=== PATIENT | female | born 1990 | race Caucasian/White ===

== ENCOUNTER 2024-03-13 20:29 | Emergency (ER) | payer MEDICAID, SELFPAY ==
--- NOTE | 2024-03-13 20:45 | XR_ITS ---
Examination: Complete OB ultrasound, less than 14 weeks, transabdominal Date and time of exam: March 13, 2024 2155 hrs. Indications: Onset vaginal bleeding beginning 2 days ago Technique: Obstetrical ultrasound images less than 14 weeks performed via transabdominal imaging Findings: Uterus 14.6 x 5.6 x 8.5 cm Fundal area of fibroid degeneration 11 x 15 mm Gestational sac 1.4 cm correspondences 6 weeks 2 days gestational age No pole no cardiac activity Right ovary 3.7 x 3.0 x 4.1 cm arterial flow 25 mm cyst Left ovary 4.8 x 3.9 x 5.0 cm arterial flow Impression: Empty intrauterine gestational sac corresponding to 6 weeks 2 days gestational age Recommend short-term follow-up transvaginal pelvic sonography to exclude embryonic demise Prominent left ovary, recommend follow-up
[2024-03-13 20:53] VITALS: BP 126/79; PULSE 79; RESP 18; TEMP 36.3; O2SAT 98
--- NOTE | 2024-03-13 21:32 | EDNOTE_ITS ---
<Statement entered by Amena Houser MD - 03/14/24 19:25> As co-signing physician, I was present and available for consult prn. I concur with the plan and care as documented by the midlevel provider. ED OB Contraction Preg RMI/HPI General Chief complaint: Vaginal Bleeding Stated complaint: 8Weeks PG/Worsening Vaginal Bleeding Time Seen by Provider: 03/13/24 20:45 Arrival date/time: 03/13/24 20:29 33F at approximately 8 weeks and with no significant PMH presents to ED with 2 days of vaginal bleeding and pelvic pain. Limitations: no limitations Related Data Previous Rx's ?Medication ?Instructions ?Recorded Hydrocodone/Acetaminophen * (NORCO 1 tab PO Q6H PRN pain #20 tabs 06/11/15 5/325 *) Sulfamethoxazole/Trimethoprim DS * 1 tab PO BID #20 tabs 06/11/15 (BACTRIM DS *) albuterol sulfate 90 mcg/actuation 2 puff inhalation Q6HR PRN 04/02/17 aerosol inhaler (ProAir HFA) WHEEZING #1 inh prednisone 20 mg tablet 40 mg (2 x 20 mg) PO QAM #10 tabs 04/02/17 Allergies Allergy/AdvReac Type Severity Reaction Status Date / Time No Known Allergies Allergy Verified 03/13/24 20:33 Review of Systems Review of Systems Systems Reviewed: All systems reviewed, normal except as documented Constitutional Constitutional: Reports system reviewed and no additional complaints, except as documented, Denies fever(s) and Denies headache(s) ENT Ears, Nose, Mouth, and Throat: Denies disequilibrium and Denies headache(s) Cardiovascular Cardiovascular: Reports system reviewed and no additional complaints, except as documented, Denies chest pain and Denies dyspnea Respiratory Respiratory: Reports system reviewed and no additional complaints, except as documented, Denies cough and Denies dyspnea Gastrointestinal Gastrointestinal: Reports system reviewed and no additional complaints, except as documented, Denies abdominal pain, Denies nausea and Denies vomiting Genitourinary Genitourinary: Reports as per HPI, Reports abnormal vaginal bleeding and Reports pelvic pain Neurologic Neurologic: Reports system reviewed and no additional complaints, except as documented, Denies confusion, Denies disequilibrium and Denies headache(s) Psychiatric Psychiatric: Denies confusion Past Medical History Social History SMOKING STATUS: Former smoker ED Exam General Limitations: Present no limitations General appearance: Present alert and in no apparent distress Head Head exam: Present atraumatic Eye Eye exam: Present normal appearance, PERRL and EOMI ENT ENT exam: Present normal exam, normal oropharynx and mucous membranes moist Neck Neck exam: Present normal inspection, full ROM and trachea midline Chest Chest inspection: Present normal inspection and symmetric chest wall rise Respiratory Respiratory exam: Present normal lung sounds bilaterally Cardiovascular Cardiovascular exam: Present regular rate, normal rhythm and normal heart sounds Abdominal Exam Abdominal exam: Present soft and normal bowel sounds Extremities Exam Extremities exam: Present normal inspection and full ROM Back Exam Back exam: Present normal inspection and full ROM Neurological Exam Neurological exam: Present alert, oriented X3 and CN II-XII intact Psychiatric Psychiatric exam: Present normal affect and normal mood Skin Skin exam: Present warm, dry, intact and normal color Course Quality Measures none Orders Category Date Time Status US OB <= 14 weeks fetus Stat Exams 03/13/24 20:45 Completed ABO/RH Type Stat Lab 03/13/24 21:06 Completed Beta HCG,Quantitative Stat Lab 03/13/24 21:06 Completed CBC Stat Lab 03/13/24 21:06 Completed CMP [Comprehensive Metabolic Panel] Stat Lab 03/13/24 21:06 Completed UA [Urinalysis] Stat Lab 03/13/24 22:00 Completed Urine Culture Stat Lab 03/13/24 22:00 Received Vital Signs Vital signs: Vital Signs Temperature 97.4 F 03/13/24 20:53 Pulse Rate 79 03/13/24 20:53 Respiratory Rate 18 03/13/24 20:53 Blood Pressure 126/79 03/13/24 20:53 Pulse Oximetry (%) 98 03/13/24 20:53 Oxygen Delivery Method Room Air 03/13/24 20:53 O2 at 98% on RA and WNLs Vaginal Bleeding MDM Narrative MDM Narrative: 33F at approximately 8 weeks and with no significant PMH presents to ED with 2 days of vaginal bleeding and pelvic pain. Physical exam reveals no pelvic tenderness. Patient is afebrile, calm, and alert. US no IUP. Beta HCG around 9k. UA clean. No leukocytosis. CMP unremarkable. Counseled to repeat HCG in 48-72 hours to see trend. Patient data External records reviewed:: [facility] previous records Clinical information provided by:: patient Social determinants that could affect healthcare access:: none Patient has the following chronic illnesses:: none How is presenting disease/condition affected by chronic disease/condition?: no chronic disease Evaluation data The following diagnostics were reviewed and interpreted by me:: lab results and radiology exam(s) Lab and/or radiology exams considered but not ordered:: ordered Interpretation Summary: above Medications / Prescriptions Medications or Prescriptions considered but not ordered:: not ordered Medication administrations:: n/a Consultations Consultation(s) initiated? (list below): No Diagnosis Vaginal Bleeding Differential Diagnosis: missed , threatened , dysfunctional uterine bleeding, menometrorrhagia, incomplete , ectopic without intrauterine and vaginal bleeding Most likely diagnosis given after review of the tests above:: vaginal bleeding Admission Indicated Admission indicated?: not indicated Admission Request Was there a request for admission?: No Disposition Plan Disposition Plan: Discharge Discharge Attestation Discharge Attestation: The patient and all family members were given an opportunity to ask questions and understood the discharge instructions. Discharge instructions specifically effects, indications for sooner follow up or return to the emergency department, and the expected course of current diagnosis. Patient condition: Stable Discharge Plan Plan Patient Disposition: HOME (Self Care) Disposition Comment: Stable Prescriptions/Referrals Prescriptions/Med Rec: No Action Hydrocodone/Acetaminophen * (NORCO 5/325 *) 1 TAB tablet 1 tab PO Q6H PRN (Reason: pain) Qty: 20 0RF Sulfamethoxazole/Trimethoprim DS * (BACTRIM DS *) 1 TAB tablet 1 tab PO BID Qty: 20 0RF prednisone 20 MG tablet 40 mg PO QAM Qty: 10 0RF albuterol sulfate [ProAir HFA] 8.5 GM HFA aerosol inhaler 2 puff Inhalation Q6HR PRN (Reason: WHEEZING) Qty: 1 0RF Referrals: Jelena Montesinos PA-C [Primary Care Provider] - In 1 week Problem List Clinical Impression: Vaginal bleeding Patient/Caregiver Discharge Instructions Additional Instructions: Please follow-up with PCP/OBGYN within 24-48 hours and return immediately if symptoms worsen. Recommend repeat HCG +/- US in 48-72 hours. Print Language: Omani Stand Alone Forms: Patient Portal Info Letter RUPERT/STUART Supervising Physician RUPERT/STUART Supervising Physician: Dr. Houser
[2024-03-13 21:38] LABS: Basophils % (Auto) 0 % (0-2.5); Eosinophils # (Auto) 0.3 Thou/mm3 (0.0-0.5); Eosinophils % (Auto) 3 % (0-10); Hematocrit 40.7 % (36.0-46.0); Hemoglobin 13.8 g/dL (12.0-16.0); Immature Granulocytes % (Auto) 0 % (0-0); Immature Granulocytes Auto 0.03 Thou/mm3 (0.00-0.00); Lymphocytes # (Auto) 2.5 Thou/mm3 (1.0-4.8); Lymphocytes % (Auto) 25 % (10-50); Mean Corpuscular HGB Conc 33.9 g/dl (31.0-37.0); Mean Corpuscular Hemoglobin 31.2 pg (25.0-35.0); Mean Corpuscular Volume 92 fL (80-100); Monocytes # (Auto) 0.6 Thou/mm3 (0.0-0.8); Monocytes % (Auto) 6 % (0-12); Neutrophils # (Auto) 6.5 Thou/mm3 (1.8-7.7); Neutrophils % (Auto) 65 % (37-80); Nucleated Red Blood Cell % 0 /100 WBC (0); Platelet Count 230 Thou/mm3 (140-440); RDW Standard Deviation 42.5 fL (36.4-46.3); Red Blood Count 4.42 Miln/mm3 (4.00-5.20)
[2024-03-13 22:14] LABS: Collection Type, Urine Clean Catch; WBC,Urine 0 /hpf (0-5)
[2024-03-13 22:23] LABS: Bacteria,Urine Rare; Bilirubin,Urine Negative (Negative); Blood,Urine 3+ (Negative); Clarity,Urine Clear (Clear/Hazy); Color,Urine Colorless (Lt Yel-Yel); Glucose, Urine Negative (Negative); Ketones,Urine Negative (Negative); Leukocyte Esterase,Urine Negative (Negative); Nitrite,Urine Negative (Negative); PH,Urine 6.5 (5.0-7.0); Protein,Urine Negative (Neg - Trace); RBC,Urine 2 /hpf (0-3); Specific Gravity,Urine 1.006 (1.001-1.035); Squamous Epithelial Cell,Urine 6 /hpf (0-5); Urobilinogen,Urine Negative mg/dL (0.0-1.0)
[2024-03-13 22:25] LABS: Alanine Aminotransferase 21 U/L (10-49); Albumin, Serum 4.6 gm/dL (3.5-5.0); Albumin/Globulin Ratio 1.5 (1.2-2.2); Alkaline Phosphatase 77 U/L (46-116); Anion Gap 5 (7-16); Aspartate Amino Transferase 22 U/L (0-34); BUN/Creatinine Ratio 9 Ratio (12-20); Beta HCG,Quantitative 9083 mIU/mL (<5.0); Bilirubin,Total 0.2 mg/dL (0.3-1.2); Blood Urea Nitrogen 9 mg/dL (9-23); Calcium 10.2 mg/dL (8.3-10.6); Calcium (Corrected) 10.2 mg/dL (8.5-10.1); Chloride 105 mMol/L (98-107); Glucose 92 mg/dL (74-106); Osmolality,Calculated 272 (275-295); Potassium 4.2 mMol/L (3.4-5.1); Sodium 137 mMol/L (136-145); Total Protein 7.6 gm/dL (5.7-8.2); eGFR > 60 See Note
== END 2024-03-13 23:43 | disposition home or self-care (01) ==
PROVIDERS: Physician Assistant; Emergency Provider Emergency Medicine; PCP Physician Assistant Medical
DX: O20.9 Hemorrhage in early pregnancy, unspecified (principal); Z3A.01 Less than 8 weeks gestation of pregnancy
CPT/HCPCS: 36415; 76801; 80053; 81001; 84702; 85025; 86900; 86901; 87086; 99284

== ENCOUNTER 2024-08-12 10:23 | Outpatient (AMB) | payer MEDICAID, SELFPAY ==
[2024-08-12 10:42] VITALS: BP 122/77; PULSE 102; RESP 20; TEMP 36.4; O2SAT 96; BMI 44.1
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
== END 2024-08-12 11:20 | disposition home or self-care (01) ==
LOC: HODSOBC 10:23
PROVIDERS: PCP Obstetrics & Gynecology; Referring Provider Obstetrics & Gynecology; Supervising Provider Obstetrics & Gynecology; Visit Provider Obstetrics & Gynecology
DX: O09.892 Supervision of other high risk pregnancies, second trimester (principal); Z3A.19 19 weeks gestation of pregnancy; O99.212 Obesity complicating pregnancy, second trimester; O26.812 Pregnancy related exhaustion and fatigue, second trimester; O26.892 Other specified pregnancy related conditions, second trimester; R10.2 Pelvic and perineal pain; Z87.891 Personal history of nicotine dependence
CPT/HCPCS: 99215; G0463

== ENCOUNTER 2024-12-03 08:56 | Inpatient (IN) | payer MEDICAID, SELFPAY ==
[2024-12-03] VITALS (20 sets, daily range): BP systolic 108–136; BP diastolic 68–94; PULSE 83–121; RESP 17–20; TEMP 36.5–36.9; O2SAT 93–99
--- NOTE | 2024-12-03 09:30 | PC.NURSE ---
[facility] notifed per EMS report
[2024-12-03] MEDS: IBUPROFEN TAB 400 MG TABLET 800 MG PO (10:01)
[2024-12-03 10:15] LABS: Basophils # (Auto) 0.1 Thou/mm3 (0.0-0.2); Basophils % (Auto) 0 % (0-2.5); Eosinophils # (Auto) 0.1 Thou/mm3 (0.0-0.5); Eosinophils % (Auto) 0 % (0-10); Hematocrit 30.1 % (36.0-46.0); Hemoglobin 10.5 g/dL (12.0-16.0); Immature Granulocytes Auto 0.27 Thou/mm3 (0.00-0.00); Lymphocytes # (Auto) 1.0 Thou/mm3 (1.0-4.8); Lymphocytes % (Auto) 3 % (10-50); Mean Corpuscular HGB Conc 34.9 g/dl (31.0-37.0); Mean Corpuscular Hemoglobin 30.5 pg (25.0-35.0); Mean Corpuscular Volume 88 fL (80-100); Monocytes # (Auto) 1.7 Thou/mm3 (0.0-0.8); Monocytes % (Auto) 6 % (0-12); Neutrophils # (Auto) 28.0 Thou/mm3 (1.8-7.7); Neutrophils % (Auto) 90 % (37-80); Nucleated Red Blood Cell # 0.00 Thou/mm3 (0.00-0.00); Nucleated Red Blood Cell % 0 /100 WBC (0); Platelet Count 257 Thou/mm3 (140-440); RDW Standard Deviation 42.5 fL (36.4-46.3); Red Blood Count 3.44 Miln/mm3 (4.00-5.20); White Blood Count 31.2 Thou/mm3 (3.6-11.0)
[2024-12-03 10:48] LABS: HIV (1&2) Antibody Rapid Non-Reactive
[2024-12-03 10:53] LABS: Rubella, IgG Antibody Reactive (Immune)
[2024-12-03 11:09] LABS: Syphilis Nonreactive (Nonreactive)
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
--- NOTE | 2024-12-03 12:20 | OBDSUM_ITS ---
Data ([place]) Data : 3 Term: 1 : 0 Livin Abortions: Spontaneous & Theraputic: 1 Delivery Data ([place]) Labor Data Initiation of labor: Spontaneous Induction/Augmentation Agent: None ROM date: 12/03/24 ROM time: 02:30 Amniotic membrane rupture type: Spontaneous Delivery Data Onset of labor date: 12/03/24 Onset of labor time: 02:30 Complete dilation date: 12/03/24 Complete dilation time: 02:30 [place] delivery date: 12/03/24 [place] delivery time: 02:30 Placenta delivery date: 12/03/24 Placenta delivery time: 02:30 Stage 1 total time: Labor - Stage 1 Duration 0 minutes Other staff at delivery: born out of hosptial Delivery Method Delivery method: Normal Vaginal Delivery Anesthesia Type Anesthesia Type: None Placenta Placenta delivery description: Spontaneous Episiotomy Episiotomy description: None EBL Estimated blood loss (ml): 200 Additional Procedures Veda is a 34yo [id number] s/p unplanned home at 36w0d sometime between 0230 and 0300, presenting via EMS. Patient states she had abdominal pain, sat on the toilet between 0230-300 and felt like vagina was opening, when she reached down she felt head and she delivered her baby in one push. She notes placenta delivered immediately after ( basically altogether ). She describes some bleeding, but not excessive. She notes infant had spontaneous cry and was vigorous. Infant was left attached to the delivered placenta. EMS was called around 0700. Once they arrived, cord was clamped and cut. Inspection of perineum and vagina reveals no lacerations. Fundal massage performed with total hemostasis noted. Fundus firm at u-2cm. I inspected the placenta thoroughly- all cotyledons present, slight odor to placenta, velamentous cord insertion noted. Will send to pathology. All counts correct x2. Mom and infant were doing well when I left the room. Mar Moreland MD Complications Complications: none [place] Data ([place]) Data order: 1 [place]'s gender: Female
[2024-12-03 12:41] LABS: Hepatitis B Surface Antigen Non Reactive (Non React)
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
--- NOTE | 2024-12-03 16:15 | PC.NURSE ---
RN at bedside v/s and doing assessment, pt states to RN she wants to leave AMA RN out of room to call Dr. Moreland.
--- NOTE | 2024-12-03 16:20 | PC.SS ---
UNIT REACTOR OPERATOR informed by bedside nurse that patient was planning on departing AMA. UNIT REACTOR OPERATOR provided update to CWS staff.
--- NOTE | 2024-12-03 16:20 | PC.NURSE ---
RN back in room with CORONA paper pt singed CORONA Galan Rn witnessed, pt educated on leaving AMAJose, educated pt on returning to hospital if bleeding increases or needs to be evaluated.
--- NOTE | 2024-12-03 16:26 | PC.SS ---
SALES AND SERVICE OFFICER submitted verbal report to S staff, Linda Michele; due to 's toxicology report positive for methamphetamine and THC. Written report pending. SALES AND SERVICE OFFICER updated bedside nurse.
--- NOTE | 2024-12-03 16:52 | PC.NURSE ---
RN at bedside pt unsure of what she wants to do or what is going on, as of now pt is telling RN she wants to stay and not leave AMA.
[2024-12-03 17:13] LABS: Amphetamine/Metham Scrn,Ur OB Positive (Negative); Benzoylecgonine Screen, Ur OB Negative (Negative); Opiate Screen,Urine OB Negative (Negative); THC Screen,Urine OB Positive (Negative)
[2024-12-03 17:14] LABS: Amphetamines/Metham U Confirm* See Sep Rpt; THC U Confirm* See Sep Rpt
--- NOTE | 2024-12-03 18:45 | PC.NURSE ---
on unit in pts room 469.
--- NOTE | 2024-12-03 19:15 | PC.NURSE ---
CWS on unit to room 469
[2024-12-03] MEDS: HYDROcodone/APAP 5/325 TABLET 1 TAB PO (22:08)
[2024-12-04] MEDS: IBUPROFEN TAB 400 MG TABLET 800 MG PO (05:41)
[2024-12-04 08:00] VITALS: BP 103/67; PULSE 105; RESP 18; TEMP 36.8; O2SAT 99
--- NOTE | 2024-12-04 08:52 | PC.SS ---
NURSES AIDE confirmed with post nursing staff that patient did not depart AMA. NURSES AIDE provided update to S staff, Miryam Riddle.
--- NOTE | 2024-12-04 09:27 | PC.SS ---
CUTTER HAND received phone call from [facility] staff, Lobo Dwyer ; that bedside contact with patient will be conducted at approximately 10:30 am today. CUTTER HAND provided updated that patient's toxicology report was positive for methamphetamine and THC.
[2024-12-04 09:49] LABS: Hematocrit 30.6 % (36.0-46.0); Hemoglobin 10.2 g/dL (12.0-16.0)
[2024-12-04 11:00] LABS: Chlamydia trachomatis PCR Negative (Not Detect); Neisseria Gonorrhoeae DNA PCR Negative (Not Detect); Trichomonas Negative (Negative)
--- NOTE | 2024-12-04 11:18 | PC.NURSE ---
Sal JEFFRIES is here from [facility] with a female partner to speak to mom.
[2024-12-04 12:00] VITALS: BP 110/70; PULSE 92; RESP 19; TEMP 36.7; O2SAT 99
--- NOTE | 2024-12-04 12:06 | PD.LDDS ---
DS: Providers Provider Date of admission: 12/03/24 08:56 Primary care physician: Physician No Primary/Family Admitting Provider: Mar Moreland MD Attending Provider on Admission: Mar Moreland MD Attending Provider on DC: Mar Moreland MD Discharging Provider: Mar Moreland MD DS: Diagnosis Discharge Diagnosis (1) Encounter for care after unplanned out of hospital delivery: Status: Acute (2) Insufficient care: Status: Acute (3) complicated by obesity: Status: Acute Problem List Completed Was Problem List Reviewed/Reconciled?: Yes Summary/Hosp Course Brief History: Veda is a 34yo [id number] s/p unplanned home at 36w0d sometime between 0230 and 0300, presenting via EMS. She has had an uncomplicated course, meeting all milestones. She is ambulating without lightheadedness, tolerating regular diet no n/v, spontaneously voiding without issue. She has no chest pain or shortness of breath. No fevers or chills. Only discomfort is some RLQ pulling sensation - no concern for appendicitis or endometritis given afebrile, normal lochia, no n/v, no rebound/guarding. Vitals normal, benign exam. Hemodynamically stable with no evidence of infection. PP Hgb 10.2 from 10.5. Of note, infant is in NICU. Testing was positive for THC and methamphetamines. Social work is involved. Peripartum Data Delivery Method: Normal Vaginal Delivery Episiotomy Description: None Status at Discharge Functional status at discharge: independent ambulation Overall status at discharge: patient is back to baseline Time Spent with Patient Time attestation: Total time spent providing and/or coordinating discharge services: Exam Vital Signs Temp Pulse Resp BP Pulse Ox O2 Del Method 98.2 F 105 H 18 103/67 99 Room Air 12/04/24 08:00 12/04/24 08:00 12/04/24 08:00 12/04/24 08:00 12/04/24 08:00 12/04/24 08:00 Narrative Exam General: well developed, well nourished, no acute distress, conversant Cardiac: normal heart rate Lungs: breathing without distress Abdomen: soft, post-gravid, non-tender, no rebound or guarding, Fundus firm at u-3cm. Extremities: no pain with palpation of calves, trace edema of BLE Discharge Plan Plan Patient Disposition: HOME (Self Care) Patient condition on transfer: Stable Prescriptions/Referrals Prescriptions/Med Rec: New ibuprofen 400 mg Tablet 800 mg PO Q8H PRN (Reason: See Comments) 10 Days Qty: 20 0RF docusate sodium [Colace] 100 mg capsule 100 mg PO BID Qty: 20 0RF Referrals: No Primary/Family,Physician [Primary Care Provider] Patient/Caregiver Discharge Instructions Discharge Activity: activity as tolerated and other Other Discharge Activity Instructions:: vaginal rest and no heavy lifting more than 10 pounds for 6 weeks Other Discharge Diet Instructions: regular diet Education Materials: After a Vaginal Print Language: Belarusian Activity Restrictions/Additional Instructions: follow up with Dr. Oneill in 2-4 weeks for visit, call office to schedule appointment Stand Alone Forms: [employer] Award Info., Patient Portal Info Letter Discharge Order Discharge Orders: Discharge (Routine); Ordered 12/04/24 Ordered By: Mar Moreland Planned Discharge Date 12/04/24 (2) Insufficient care Qualifiers: Trimester: third trimester Qualified Code(s): O09.33 - Supervision of with insufficient care, third trimester (3) complicated by obesity Qualifiers: Trimester: third trimester Obesity type affecting : unspecified obesity Qualified Code(s): O99.213 - Obesity complicating , third trimester
--- NOTE | 2024-12-04 15:42 | PC.SS ---
CLINICAL DATA PROGRAMMER met with [facility] staff Lobo Dwyer in post unit. [facility] staff informed CLINICAL DATA PROGRAMMER that staffing to occur tomorrow morning to determine disposition of . CLINICAL DATA PROGRAMMER informed that [facility] staff met with 's mother. CLINICAL DATA PROGRAMMER escorted [facility] staff to NICU to conduct bedside contact with infant and to obtain update from bedside nurse on infant's condition. Copy of [facility] staff identification obtained and placed in patients charts.
[2024-12-04 16:00] VITALS: BP 108/67; PULSE 98; RESP 19; TEMP 36.5; O2SAT 99
== END 2024-12-04 16:40 | disposition home or self-care (01) | DRG 561 ==
LOC: S4SX 09:21 → S4NX 10:33
PROVIDERS: Admitting Provider Obstetrics & Gynecology; Visit Provider Obstetrics & Gynecology
DX: Z39.0 Encounter for care and examination of mother immediately after delivery (principal); O73.0 Retained placenta without hemorrhage; O99.215 Obesity complicating the puerperium; Z87.891 Personal history of nicotine dependence
CPT/HCPCS: 36415; 80307; 85014; 85018; 85025; 86703; 86762; 86780; 86850; 86900; 86901; 87340; 87491; 87591; 87661; A9270